=== PATIENT | male | born 1965 | race Caucasian/White ===

== ENCOUNTER 2020-07-16 16:35 | Outpatient (CLI) | payer BC ==
[2020-07-16 19:52] LABS: BASOPHILS % (AUTO) 0.3 %; EOSINOPHILS # (AUTO) 0.1 10^3/uL (0.0-0.7); EOSINOPHILS % (AUTO) 1.4 %; HCT - HEMATOCRIT 48.7 % (42.0-52.0); HGB - HEMOGLOBIN 16.5 g/dL (14.0-18.0); LYMPHOCYTES # (AUTO) 3.3 10^3/uL (1.5-3.5); LYMPHOCYTES % (AUTO) 41.8 %; MEAN CORPUSCULAR HEMOGLOBIN 28.6 pg (27.0-31.0); MEAN CORPUSCULAR HGB CONC 33.9 g/dL (32.0-36.0); MEAN CORPUSCULAR VOLUME 84.4 fL (80.0-94.0); MEAN PLATELET VOLUME 11.5 fL (7.4-11.4); MONOCYTES # (AUTO) 0.7 10^3/uL (0.0-1.0); NEUTROPHILS # (AUTO) 3.8 10^3/uL (1.5-6.6); NEUTROPHILS % (AUTO) 47.2 %; PLT - PLATELET COUNT 255 10^3/uL (130-450); RED BLOOD COUNT 5.77 10^6/uL (4.70-6.10)
[2020-07-16 20:08] LABS: ALBUMIN 4.7 g/dL (3.2-5.5); ALBUMIN/GLOBULIN RATIO 1.4 (1.0-2.2); BILIRUBIN,TOTAL 0.6 mg/dL (0.2-1.0); CALCIUM 9.5 mg/dL (8.5-10.3); CREATININE 0.9 mg/dL (0.6-1.2); POTASSIUM 3.8 mmol/L (3.5-5.0)
[2020-07-16 20:23] LABS: THYROID STIMULATING HORMONE 2.92 uIU/mL (0.34-5.60)
== END 2020-07-16 16:36 | disposition home or self-care (01) ==
LOC: LAB.S 16:35
PROVIDERS: ATTEND Internal Medicine
DX: I10 Essential (primary) hypertension (principal); R53.83 Other fatigue
CPT/HCPCS: 36415; 80053; 84403; 84443; 85025

== ENCOUNTER 2023-05-06 08:00 | Outpatient (CLI) | payer BC ==
--- NOTE | 2023-05-06 18:35 | XRAY Report ---
PROCEDURE: Chest 2V INDICATIONS: CHEST CONGESTION/INFLUENZA A TECHNIQUE: 2 views of the chest were acquired. COMPARISON: None. FINDINGS: Surgical changes and devices: None. Lungs and pleura: No pleural effusions or pneumothorax. Lungs are clear. Mediastinum: Mediastinal contours appear normal. Heart size is normal. Bones and chest wall: No suspicious bony lesions. Overlying soft tissues appear unremarkable. IMPRESSION: No acute cardiopulmonary process identified. Reviewed by: Jay Sands MD on 05/06/2023 6:34 PM [facility] Approved by: Jay Sands MD on 05/06/2023 6:34 PM [facility] Station ID: [id number]
== END 2023-05-06 23:59 | disposition home or self-care (01) ==
LOC: DI.S 08:00
PROVIDERS: ATTEND Physician Assistant Medical
DX: R09.89 Other specified symptoms and signs involving the circulatory and respiratory systems (principal); R06.2 Wheezing

== ENCOUNTER 2023-07-05 07:58 | Day surgery (SDC) | payer BC ==
[2023-07-05] MEDS: LACTATED RINGERS 1,000 ML IV ONE (08:04)
--- NOTE | 2023-07-05 09:52 | ANESTHESIA ---
Pre-Anesthesia VS, & Labs - Diagnosis dysphagia and screening exam - Procedure EGD and colonoscopy Vital Signs: Temp Pulse Resp BP Pulse Ox O2 Flow Rate 36.7 C 85 14 151/100 H 95 07/05/23 08:17 07/05/23 08:17 07/05/23 08:17 07/05/23 08:17 07/05/23 08:17 Height: 5 ft 9 in Weight (kg): 96.5 kg Body Mass Index: 31.4 BMI Classification: Obese - NPO >8 hours Home Medications and Allergies Home Medications: Ambulatory Orders Losartan Potassium 100 mg PO DAILY 07/05/23 amLODIPine [Norvasc] 5 mg PO DAILY 07/05/23 hydroCHLOROthiazide [Hydrodiuril] 12.5 mg PO DAILY 07/05/23 Losartan Potassium 100 mg PO DAILY 07/05/23 amLODIPine [Norvasc] 5 mg PO DAILY 07/05/23 hydroCHLOROthiazide [Hydrodiuril] 12.5 mg PO DAILY 07/05/23 Allergies/Adverse Reactions: Allergies Allergy/AdvReac Type Severity Reaction Status Date / Time No Known Drug Allergies Allergy Verified 07/05/23 08:31 Anes History & Medical History - Anesthetic History Anesthesia Complications: reports: No previous complications - Medical History Cardiovascular: reports: Hypertension Pulmonary: reports: Other (snores) Gastrointestinal: reports: None Urinary: reports: Frequency Musculoskeletal: reports: None Endocrine/Autoimmune: reports: None Skin: reports: Rosacea Smoking Status: Former smoker Psychosocial: reports: No issues indicated History of Cancer?: No - Surgical History Orthopedic: reports: Other (foot cyst) Exam General: Alert, Oriented x3, Cooperative, No acute distress Dental: WNL Mouth Openin Fingerbreadth Neck Mobility: Normal Mallampati classification: III Thyromental Distance: 4-6 cm Mental/Cognitive Status: Alert/Oriented X3, Normal for patient Plan Anesthesia Type: General, Total IV Consent for Procedure(s) Verified and Reviewed: Yes Code Status: Attempt Resuscitation ASA classification: 2-Mild systemic disease Is this case an emergency?: No
[2023-07-05] MEDS ORDERED: MIDAZOLAM 2 MG/2 ML VIAL ONE (09:59)
[2023-07-05] MEDS ORDERED: LIDOCAINE-PF 2% 10 ML AMP SUBQ ONE (09:59)
[2023-07-05] MEDS ORDERED: TETRACAINE/BENZOCAINE/BUTAMBEN 5 GM BOTTLE ONE (10:02)
[2023-07-05] MEDS ORDERED: PROPOFOL 500 MG/50 ML 500 MG/50 ML VIAL ONE (10:07)
[2023-07-05] MEDS: TETRACAINE/BENZOCAINE/BUTAMBEN 5 GM BOTTLE MM ONE (10:07)
[2023-07-05] MEDS: LACTATED RINGERS 300 ML IV ONE (10:40)
[2023-07-05 11:18] VITALS: BP 117/69; O2SAT 96
--- NOTE | 2023-07-05 14:12 | ANESTHESIA POST OP EVALUATION ---
Anesthesia Post Eval - Post Anesthesia Eval Vitals: Last Vital Signs Temp 36.5 C 07/05/23 11:12 Pulse 66 07/05/23 11:12 Resp 14 07/05/23 11:12 BP 117/69 07/05/23 11:12 Pulse Ox 96 07/05/23 11:12 O2 Flow Rate CV Function Including HR & BP: Stable Pain Control: Satisfactory Nausea & Vomiting: Negative Mental Status: Baseline Respiratory Status: Airway Patent Hydration Status: Satisfactory Anesthesia Complications: None
== END 2023-07-05 07:59 | disposition home or self-care (01) ==
LOC: SDS 07:58
PROVIDERS: ATTEND Surgery
PROC: 0DBL8ZX Excision of Transverse Colon, Via Natural or Artificial Opening Endoscopic, Diagnostic (ICD-10-PCS; 2023-07-05)
PROC: 0DB68ZX Excision of Stomach, Via Natural or Artificial Opening Endoscopic, Diagnostic (ICD-10-PCS; principal; 2023-07-05 09:30)
PROC: 0DBN8ZX Excision of Sigmoid Colon, Via Natural or Artificial Opening Endoscopic, Diagnostic (ICD-10-PCS; 2023-07-05 09:30)
DX: Z12.11 Encounter for screening for malignant neoplasm of colon (principal); D12.7 Benign neoplasm of rectosigmoid junction; D12.3 Benign neoplasm of transverse colon; R13.10 Dysphagia, unspecified; K29.70 Gastritis, unspecified, without bleeding; K21.00 Gastro-esophageal reflux disease with esophagitis, without bleeding; K64.1 Second degree hemorrhoids; I10 Essential (primary) hypertension; F17.220 Nicotine dependence, chewing tobacco, uncomplicated; E66.9 Obesity, unspecified; Z68.31 Body mass index [BMI] 31.0-31.9, adult
CPT/HCPCS: 43239; 45380; 45385; A9270; J7120